=== PATIENT | female | born 1970 | race Caucasian/White ===

== ENCOUNTER 2018-09-28 12:13 | Outpatient (CLI) | END 2018-09-28 12:14 | disposition home or self-care (01) | LOC: RHC-LAB 12:13 → FCC-LAB 12:14 | PROVIDERS: ATTEND Nurse Practitioner Family | DX: R22.1 Localized swelling, mass and lump, neck (principal); R52 Pain, unspecified; L98.9 Disorder of the skin and subcutaneous tissue, unspecified | CPT/HCPCS: 36415; 80053; 85025; 86592 ==

== ENCOUNTER 2018-10-02 09:01 | Emergency (ER) ==
[2018-10-02] MEDS ORDERED: MOTRIN PO STA (10:19)
--- NOTE | 2018-10-02 10:40 | CT ---
EXAM: CT of the soft tissue neck with contrast History: Left neck swelling. Technique: Multiplanar CT images through the soft tissue neck were obtained following administration of IV contrast Findings: The visualized intracranial contents demonstrate no acute findings. Orbits are intact. N o acute osseous abnormalities. The visualized paranasal sinuses are clear in general. Chronic-appea ring right mastoid effusion. Epiglottis is not thickened. No prevertebral soft tissue swelling. Cunningham bmandibular glands and parotid glands are not inflamed. Bilateral parotid masses or lymph nodes liliya uring up to 1.2 cm on the left and 1.0 cm on the right. A few right thyroid nodules with the largest measuring 1.1 cm. The visualized upper lungs are free of consolidation. Subcutaneous edema and are as of phlegmonous change seen within the subcutaneous fat of the left posterior neck. No enhancing d rainable fluid collections are identified. There are mildly enlarged bilateral posterior neck lymph nodes measuring up to 1.1 cm bilaterally. Impression: 1. Cellulitis and phlegmonous change of the left posterior neck. No drainable abscess identified. 2. Mildly enlarged bilateral neck lymph nodes could be reactive. 3. Bilateral parotid soft tissue nodules or lymph nodes. Follow-up is recommended to assure stabili ty.
[2018-10-02] MEDS ORDERED: ROCEPHIN 2 GM in SODIUM CHLORIDE 100 ML IV STA (11:20)
[2018-10-02] MEDS ORDERED: OMNICEF PO STA (11:22)
[2018-10-02] MEDS ORDERED: CLEOCIN PO STA (11:23)
[2018-10-02] MEDS ORDERED: ROCEPHIN ONE (11:24)
--- NOTE | 2018-10-02 11:28 | ED.PDOC ---
General ED Provider: Dr. BROOKE BARON Chief Complaint: Abscess Stated Complaint: c/o of a postrerior neck fullness. Time Seen by Physician: 09:00 (seen with hanna at on arrival and gaurang at d/c) Information Source: Patient Exam Limitations: No limitations Primary Care Provider: MERLIN HERRERA Nursing and Triage Documentation Reviewed and Agree: Yes Does patient meet sepsis criteria?: No System Inflammatory Response Syndrome: Not Applicable Sepsis Protocol: For patient's 13 years and over: Temp is 96.8 and below OR 101 and greater Pulse >90 BPM Resp >20/minute Acutely Altered Mental Status Are patient's symptoms suggestive of a new infection, such as: -Pneumonia -Skin, Soft Tissue -Endocarditis -UTI -Bone, Joint Infection -Implantable Device -Acute Abdominal Infection -Wound Infection -Meningitis -Blood Stream Catheter Infection -Unknown EENT Complaint Exam - Throat Complaint/Exam Onset/Duration: c/o neck Symptoms Are: Still present Timimg: Intermittent Initial Severity: Mild Current Severity: Mild Aggravating: Reports: None Alleviating: Reports: None Associated Signs and Symptoms: Denies: Fever, Dysphagia, Drooling, Foreign body sensation, Chills, Cough, Wheezing, Hoarseness, Sinus discomfort, Nasal congestion, Difficulty breathing, Lethargy, Irritability, Decreased activity, Vomiting, Diarrhea, Decreased hearing, Ear drainage Related History: Reports: Similar Episode (1 week) Uvula Midline: Yes Silvina-tonsillar Fluctuence: No Scarlatinaform Rash Present: No Lesions: Absent: Lip, Gums, Tongue, Buccal Mucosa, Pharynx Exanthem: Absent: Lip, Gums, Tongue, Buccal Mucosa, Pharynx Vesicles: Absent: Lip, Gums, Tongue, Buccal Mucosa, Pharynx Stridor Present: No Sinus Tenderness Present: No Tonsillar Hypertrophy Present: No Tonsillar Exudate Present: No Silvina-tonsillar Swelling Present: No Adenopathy Present: Yes Splenomegaly Present: No Differential Diagnoses: Silvina-tonsillar Abcess, Pharyngitis Review of Systems - Review Of Systems Constitutional: Reports: No symptoms Eyes: Reports: No symptoms Ears, Nose, Mouth, Throat: Reports: No symptoms Respiratory: Reports: No symptoms Cardiac: Reports: No symptoms GI: Reports: No symptoms : Reports: No symptoms Musculoskeletal: Reports: Neck pain Skin: Reports: No symptoms Neurological: Reports: No symptoms Endocrine: Reports: No symptoms Hematologic/Lymphatic: Reports: No symptoms All Other Systems: Reviewed and Negative Past Medical History - Past Medical History Previously Healthy: Yes Endocrine: Reports: None Cardiovascular: Reports: None Respiratory: Reports: None Hematological: Reports: None Gastrointestinal: Reports: None Genitourinary: Reports: None Neuro/Psych: Reports: None Musculoskeletal: Reports: None Cancer: Reports: None - Surgical History General Surgical History: Reports: None - Family History Family History: Reports: None Physical Exam - Physical Exam Appearance: Well-appearing, No pain distress, Well-nourished Eyes: GWEN, EOMI, Conjunctiva clear ENT: Oropharynx normal (left sided neck tenderness and palpable cervical nodes 3 mm mobile and none tender . NO AIRWAY ISSUES NOTED ) Respiratory: Airway patent, Breath sounds clear, Breath sounds equal, Respirations nonlabored Cardiovascular: RRR, Pulses normal, No rub, No murmur GI/: Soft, Nontender, No masses, Bowel sounds normal, No Organomegaly Musculoskeletal: Normal strength, ROM intact, No edema, No calf tenderness Skin: Warm, Dry, Normal color Neurological: Sensation intact, Motor intact, Reflexes intact, Cranial nerves intact, Alert, Oriented Psychiatric: Affect appropriate, Mood appropriate Re-Evaluation - Re-Evaluation Time of Re-Evaluation: 11:00 Status: Unchanged Vital Signs Stable: Yes Appearance: NAD Lungs: Clear Skin: Warm and Dry Neuro: Alert and Oriented X3 CV: RRR Additional Comments: ADMISSION DISCUSSED , PT HAS AN 9 YRS OLD CAN NOT BE ADMITTED . Critical Care Note - Critical Care Note Total Time (mins): 0 Course - Course Hematology/Chemistry: 10/02/18 09:12 10/02/18 09:12 Orders, Labs, Meds: Lab Review 10/02/18 10/02/18 10/02/18 09:12 09:12 09:12 WBC 14.43 H RBC 4.01 L Hgb 12.1 Hct 36.8 L MCV 91.8 MCH 30.2 MCHC 32.9 RDW Coeff of [place] 13.8 Plt Count 350 Immature Gran % (Auto) 0.2 Neut % (Auto) 76.1 Lymph % (Auto) 17.4 [place] % (Auto) 4.5 Eos % (Auto) 1.3 Baso % (Auto) 0.5 Immature Gran # (Auto) 0.0 Neut # (Auto) 11.0 H Lymph # (Auto) 2.5 [place] # (Auto) 0.7 Eos # (Auto) 0.2 Baso # (Auto) 0.1 Sodium 137.3 Potassium 4.06 Chloride 105.1 Carbon Dioxide 24.3 Anion Gap 11.96 BUN 10.5 Creatinine 0.57 L Estimated GFR (MDRD) 114.00 BUN/Creatinine Ratio 18.42 Glucose 77.6 Calcium 9.09 Total Bilirubin 0.24 AST 17.7 ALT 12.3 Alkaline Phosphatase 78.0 Total Protein 7.36 Albumin 3.95 Globulin 3.41 Albumin/Globulin Ratio 1.15 Serum , Qual Negative Orders Category Date Time Status NPO REMINDER: IMAGING ONCE CARE 10/02/18 09:04 Active CBC W/ AUTO DIFF Stat LAB 10/02/18 09:12 Completed COMPREHENSIVE METABOLIC PANEL Stat LAB 10/02/18 09:12 Completed SERUM Stat LAB 10/02/18 09:12 Completed Cefdinir [Omnicef] MEDS 10/02/18 11:22 Stat 300 mg PO ONCE STA Ceftriaxone Sodium [Rocephin] 2 gm MEDS 10/02/18 11:20 Ordered 0.9 % Sodium Chloride [Sodium Chloride] 100 ml IV ONCE Clindamycin HCl [Cleocin] MEDS 10/02/18 11:23 Stat 300 mg PO ONCE STA Ibuprofen [Motrin] MEDS 10/02/18 10:19 Discontinued 400 mg PO ONCE STA CT SOFT TISSUE NECK W/CONTRAST Stat RADS 10/02/18 09:04 Completed Medications Generic Name Dose Route Start Last Admin Trade Name Freq PRN Reason Stop Dose Admin Ceftriaxone Sodium 2 gm/ 100 mls @ 100 mls/hr 10/02/18 11:20 Sodium Chloride IV 10/02/18 12:19 ONCE STA Discontinued Medications Generic Name Dose Route Start Last Admin Trade Name Freq PRN Reason Stop Dose Admin Cefdinir 300 mg 10/02/18 11:22 Omnicef PO 10/02/18 11:23 ONCE STA Clindamycin HCl 300 mg 10/02/18 11:23 Cleocin PO 10/02/18 11:24 ONCE STA Ibuprofen 400 mg 10/02/18 10:19 10/02/18 10:38 Motrin PO 10/02/18 10:20 400 mg ONCE STA Administration Departure - Departure Time of Disposition: 11:32 Disposition: AMA Discharge Problem: Cellulitis of neck, Cervical lymphadenopathy Instructions: Cellulitis (ED) Condition: Good Pt referred to PMD for follow-up: Yes IPMP verified?: No Additional Instructions: Please call your Family Physician as soon as possible to schedule a follow-up appointment.START YOUR MEDS IN AM . AT 9 AM ON TUESDAY YOUR DOCTOR WANTS TO SEE YOU Allergies/Adverse Reactions: Allergies Penicillins Allergy (Verified 10/02/18 09:11) Home Medications: Ambulatory Orders Sertraline HCl 100 mg PO BID 04/21/18
[2018-10-02 11:56] VITALS: BP 160/87; TEMP 98.9; BMI 31.1
== END 2018-10-02 12:24 | disposition left against medical advice (07) ==
LOC: ED 09:01
DX: L02.11 Cutaneous abscess of neck (principal); M54.2 Cervicalgia; L03.221 Cellulitis of neck; R59.1 Generalized enlarged lymph nodes
CPT/HCPCS: 36415; 80053; 84703; 85025; 96365; 99284

== ENCOUNTER 2018-10-04 09:46 | Outpatient (CLI) | END 2018-10-04 09:47 | disposition home or self-care (01) | LOC: RHC-LAB 09:46 → FCC-LAB 09:47 | PROVIDERS: ATTEND Family Medicine | DX: L73.2 Hidradenitis suppurativa (principal) | CPT/HCPCS: 87070; 87077; 87186 ==